=== PATIENT | female | born 1990 | race African-American/Black ===

== ENCOUNTER 2016-12-22 11:46 | Emergency (ER) | payer OTHER ==
[2016-12-22 11:53] VITALS: BMI 35.2
--- NOTE | 2016-12-22 13:29 | PDOC ---
History of Present Illness - General History Source: Patient Exam Limitations: No Limitations - History of Present Illness Initial Comments: 12/22/16 13:43 The patient is a 26-year-old woman M2, currently approximately 10 weeks with a past medical history of a benign heart murmur who was advised to present to the emergency department by her Prop Cutter, Dr. Arrieta, for further evaluation of vaginal bleeding. Patient reports noting an episode of vaginal bleeding yesterday. No clots. She reports associated symptoms of intermittent abdominal cramping, particularly on the right lower abdomen. Her last menstrual period was on 10/08/2016. Patient reported to her clinic ([address] [place] [address]), who advised her to come to the ER. No fever, chills, weakness, nausea, vomiting, diarrhea. No urinary complaints. Allergies: No Known Drug Allergies Past Surgical History: None reported Social History: No tobacco, EtOH and recreational drug use. Primary Care Physician: Dr. Linette Perez Prop Cutter: Dr. Arrieta <Shazia Tyler - Last Filed: 12/22/16 14:37> <Gina Darden - Last Filed: 12/22/16 16:36> - General Chief Complaint: Vaginal Bleeding Stated Complaint: 10 WKS , BLEEDING (REFERRED) Time Seen by Provider: 12/22/16 13:06 Past History <Shazia Tyler - Last Filed: 12/22/16 14:37> - Past Medical History Asthma: No Cancer: No Cardiac Disorders: Yes (benign heart murmur) Diabetes: No HTN: No Seizures: No Thyroid Disease: No - Reproductive History (#): 4 Para: 1 Therapeutic (s) & number: Yes Spontaneous : 1 - Psycho/Social/Smoking Cessation Hx Anxiety: No Suicidal Ideation: No Smoking History: Never smoked Have you smoked in the past 12 months: No Information on smoking cessation initiated: No Hx Alcohol Use: No Drug/Substance Use Hx: No Substance Use Type: None Hx Substance Use Treatment: No <Gina Darden - Last Filed: 12/22/16 16:36> - Past Medical History Allergies/Adverse Reactions: Allergies Allergy/AdvReac Type Severity Reaction Status Date / Time No Known Allergies Allergy Verified 12/22/16 11:51 Home Medications: Ambulatory Orders Ibuprofen [Motrin -] 600 mg PO Q4H PRN #1 tablet 10/12/13 Acetaminophen [Tylenol .Regular Strength -] 650 mg PO Q4H PRN #1 tablet Metoclopramide HCl [Reglan -] 10 mg PO TID #21 tablet 11/19/15 Review of Systems - Review of Systems Able to Perform ROS?: Yes Comments:: 12/22/16 13:43 GENERAL/CONSTITUTIONAL: No fever or chills. No weakness. HEAD, EYES, EARS, NOSE AND THROAT: No change in vision. No ear pain or discharge. No sore throat. CARDIOVASCULAR: No chest pain or shortness of breath. RESPIRATORY: No cough, wheezing, or hemoptysis. GASTROINTESTINAL: No nausea, vomiting, diarrhea or constipation. GENITOURINARY:Yes: +Vaginal Bleeding. No dysuria, frequency, or change in urination. MUSCULOSKELETAL: No joint or muscle swelling or pain. No neck or back pain. SKIN: No rash NEUROLOGIC: No headache, vertigo, loss of consciousness, or change in strength/ sensation. ENDOCRINE: No increased thirst. No abnormal weight change. HEMATOLOGIC/LYMPHATIC: No anemia, easy bleeding, or history of blood clots. ALLERGIC/IMMUNOLOGIC: No hives or skin allergy. <Shazia Tyler - Last Filed: 12/22/16 14:37> *Physical Exam - Vital Signs Last Vital Signs Temp Pulse Resp BP Pulse Ox 98.2 F 81 18 113/62 100 12/22/16 11:51 12/22/16 11:51 12/22/16 11:51 12/22/16 11:51 12/22/16 11:51 - Physical Exam Comments: 12/22/16 13:43 GENERAL: Awake, alert, and fully oriented, in no acute distress HEAD: No signs of trauma EYES: PERRLA, EOMI, sclera anicteric, conjunctiva clear ENT: Auricles normal inspection, hearing grossly normal, nares patent, oropharynx clear without exudates. Moist mucosa NECK: Normal ROM, supple, no lymphadenopathy, JVD, or masses LUNGS: Breath sounds equal, clear to auscultation bilaterally. No wheezes, and no crackles HEART: Regular rate and rhythm, normal S1 and S2, no murmurs, rubs or gallops ABDOMEN: Soft, mild right lower quadrant tenderness to palpation, normoactive bowel sounds. No guarding, no rebound. No masses EXTREMITIES: Normal range of motion, no edema. No clubbing or cyanosis. No cords, erythema, or tenderness NEUROLOGICAL: Cranial nerves II through XII grossly intact. Normal speech <Shazia Tyler - Last Filed: 12/22/16 14:37> - Vital Signs Last Vital Signs Temp Pulse Resp BP Pulse Ox 98.2 F 81 18 113/62 100 12/22/16 11:51 12/22/16 11:51 12/22/16 11:51 12/22/16 11:51 12/22/16 11:51 - Physical Exam Comments: : No external lesions. Trace physiologic discharge in the vault. No CMT, no adnexal tenderness. Os closed. <Gina Darden - Last Filed: 12/22/16 16:36> ED Treatment Course - LABORATORY CBC & Chemistry Diagram: 12/22/16 15:15 12/22/16 15:15 <Gina Darden - Last Filed: 12/22/16 16:36> *DC/Admit/Observation/Transfer - Attestations Scribe Attestion: 12/22/16 13:43 Documentation prepared by Shazia Tyler, acting as back office medical assistant for Gina Darden MD. <Shazia Tyler - Last Filed: 12/22/16 14:37> - Discharge Dispostion Admit: No <Gina Darden - Last Filed: 12/22/16 16:36> Diagnosis at time of Disposition: Threatened - Discharge Dispostion Disposition: HOME Condition at time of disposition: Stable - Referrals Referrals: Linette Perez MD [Primary Care Provider] -
[2016-12-22 14:23] LABS: URINE APPEARANCE CLEAR; URINE BILIRUBIN NEGATIVE (NEGATIVE); URINE BLOOD NEGATIVE (NEGATIVE); URINE COLOR YELLOW; URINE GLUCOSE (UA) 1+ (NEGATIVE); URINE KETONE NEGATIVE (NEGATIVE); URINE NITRITE NEGATIVE (NEGATIVE); URINE PROTEIN NEGATIVE (NEGATIVE); URINE UROBILINOGEN NEGATIVE E.U./dl (0.2-1.0)
[2016-12-22 14:44] LABS: URINE LEUK ESTERASE TRACE (NEGATIVE)
[2016-12-22 14:46] LABS: URINE BACTERIA RARE /hpf (NONE SEEN); URINE MUCUS FEW; URINE RBC 2 /hpf (0-3); URINE WBC 11 /hpf (3-5)
[2016-12-22 15:22] LABS: BASOPHIL 0.3 % (0-2.0); EOSINOPHIL 2.4 % (0-4.5); MCH 28.7 pg (25.7-33.7); MCHC 32.6 g/dl (32.0-36.0); MEAN CELL VOLUME 88.1 fl (80-96); MEAN PLT VOLUME 9.2 fl (7.5-11.1); NEUTROPHILS 59.1 % (42.8-82.8); PLATELET COUNT 235 K/MM3 (134-434); WHITE BLOOD COUNT 9.7 K/mm3 (4.0-10.0)
[2016-12-22 15:45] LABS: ALBUMIN 3.5 g/dl (3.4-5.0); ANION GAP 8 (8-16); BILIRUBIN,TOTAL 0.5 mg/dL (0.2-1.0); CALCIUM 8.8 mg/dL (8.5-10.1); CO2 25 mmol/L (21-32); COCKROFT - GAULT 181.9085; CREATININE 0.7 mg/dL (0.55-1.02); GLUCOSE,RANDOM 115 mg/dL (74-106); SGOT/AST 8 U/L (15-37); SGPT/ALT 17 U/L (12-78); TOT PROT 7.8 g/dl (6.4-8.2)
[2016-12-22 16:15] LABS: ALK PHOS 78 U/L (45-117)
[2016-12-22 16:40] VITALS: BP 115/84; PULSE 82; TEMP 98
== END 2016-12-22 16:41 | disposition home or self-care (01) ==
LOC: JER 11:46
DX: O26.891 Other specified pregnancy related conditions, first trimester (principal); O20.0 Threatened abortion; Z3A.10 10 weeks gestation of pregnancy
CPT/HCPCS: 36415; 76817-TC; 80053; 81003; 81015; 84702; 85025; 86850; 86900; 86901; 99282-25

== ENCOUNTER 2017-07-19 08:00 | Inpatient (IN) | payer OTHER ==
[2017-07-19] MEDS ORDERED: ELECTROLYTE-148 SOLN 500 ML IV SCH (12:00)
[2017-07-19] MEDS ORDERED: CITRIC ACID/SODIUM CITRATE 30 ML UNIT-DOSE CUP PO ONE (12:00)
[2017-07-19] MEDS ORDERED: ELECTROLYTE-148 SOLN 1,000 ML IV SCH (12:30)
[2017-07-19 12:43] VITALS: BMI 37.8
[2017-07-19] MEDS ORDERED: BENZOCAINE 28 GM HEMORRHOIDAL OINTMENT PR PRN (15:40)
[2017-07-19] MEDS ORDERED: WITCH HAZEL 50% (TUCKS) 40 PAD/JAR PAD TP PRN (15:40)
[2017-07-19] MEDS ORDERED: BENZOCAINE 20% 57 GM BOTTLE TP PRN (15:40)
[2017-07-19] MEDS ORDERED: METHYLERGONOVINE MALEATE 0.2 MG/1 ML AMP IM PRN (15:40)
[2017-07-19] MEDS ORDERED: DEXTROSE 5%-LACTATED RINGERS 1,000 ML IV SCH (15:45)
[2017-07-19] MEDS ORDERED: OXYTOCIN 20 UNITS in 0.9% NS 20 UNIT/1,000 ML INFUS.BAG IV SCH (15:45)
--- NOTE | 2017-07-19 15:48 | HP ---
Past Medical History - Primary Care Physician PCP:: Renzo Vo - Admission Chief Complaint: 39 weeks, previous c/s , request of c/s History of Present Illness: 26 yo f 39 weeks, with previous c/s requesting repeat c/s, hx of GDM, diet controlled, cx clp, vx -3 mi, fhr cat 1, rba to c/s discussed , discussed History Source: Patient Limitations to Obtaining History: No Limitations - Past Medical History ...: 6 ...Para: 1 ...Term: 1 ...: 0 ...Spon : 2 ...Induced : 2 ...Multiple Gestation: 0 ... Weeks Gestation by Dates: 39.0 ...EDC by Dates: 07/26/17 - Past Surgical History Past Surgical History: Yes: Hx Myomectomy: No Hx Transabdominal Cerclage: No - Smoking History Smoking history: Never smoked Have you smoked in the past 12 months: No - Alcohol/Substance Use Hx Alcohol Use: No - Social History History of Recent Travel: No Home Medications - Allergies Allergies/Adverse Reactions: Allergies Allergy/AdvReac Type Severity Reaction Status Date / Time No Known Allergies Allergy Verified 07/19/17 16:46 - Home Medications Home Medications: Ambulatory Orders Vit/Iron Fumarate/FA [ Tablet] 1 tab PO DAILY 05/29/17 Review of Systems - Review of Systems Constitutional: reports: No Symptoms Eyes: reports: No Symptoms HENT: reports: No Symptoms Neck: reports: No Symptoms Cardiovascular: reports: No Symptoms Respiratory: reports: No Symptoms Gastrointestinal: reports: No Symptoms (0) Genitourinary: reports: No Symptoms Breasts: reports: No Symptoms Reported Musculoskeletal: reports: No Symptoms Integumentary: reports: No Symptoms Neurological: reports: No Symptoms Endocrine: reports: No Symptoms Hematology/Lymphatic: reports: No Symptoms Psychiatric: reports: No Symptoms Physical Exam - Maternity Vital Signs: Vital Signs Temperature 98.2 F 07/19/17 12:33 Pulse Rate 94 H 07/19/17 12:33 Respiratory Rate 20 07/19/17 12:33 Blood Pressure 136/87 07/19/17 12:33 O2 Sat by Pulse Oximetry (%) Constitutional: Yes: Well Nourished, No Distress, Calm Eyes: Yes: WNL, Conjunctiva Clear, EOM Intact HENT: Yes: WNL, Atraumatic, Normocephalic Neck: Yes: WNL, Supple, Trachea Midline Cardiovascular: Yes: WNL, Regular Rate and Rhythm Breast(s): Yes: WNL - Abdominal Exam/OB Fundal Height: 40 Number of Fetuses: Single Presentation: Vertex Contractions: No Regularity: Irritability Intensity: Unaware Monitor Mode: External Heart Rate Location: [facility] Category: I Accelerations: Uniform Decelerations: None - Vaginal Exam/OB Vaginal Bleediing: No Speculum Exam: No Dilatation (cm): closed Effacement (%): 0 Amniotic Membrane Status: Intact Presentation: Vertex/Position Station: -3 - Physical Exam Edema: Yes Edema: LLE: Trace, RLE: Trace Deep Tendon Reflex Grade: Normal +2 Psychiatric: Yes: WNL Hemorrhage Risk Assessment - Risk Factors Medium Risk Factors: Yes: Prior , uterine surgery,or multiple laparotomies Risk Score: 1 Risk Level: Medium Risk Problem List - Problems (1) with 39 completed weeks gestation Code(s): Z3A.39 - 39 WEEKS GESTATION OF (2) Previous section Code(s): Z98.891 - HISTORY OF UTERINE SCAR FROM PREVIOUS SURGERY Assessment/Plan 39 weeks,previous c/s ,for repeat c/s rba discussed
[2017-07-19] MEDS ORDERED: morphine SULFATE/Preservative Free 0.5 MG/ML (1cc Syringe) EP ONE (16:30)
[2017-07-19] MEDS: IBUPROFEN 800 MG/8 ML IJ IVPB PRN ×2 (17:06→22:44)
--- NOTE | 2017-07-19 17:11 | OP ---
DATE OF OPERATION: 07/19/2017 PREOPERATIVE DIAGNOSIS: , 39 weeks; previous section; request of repeat section. POSTOPERATIVE DIAGNOSIS: , 39 weeks; previous section; request of repeat section. PROCEDURE: Repeat low-segment transverse section and removal of the old keloid scar. SURGEON: Kiki Vo MD SECURITY COMPLIANCE SPECIALIST: BECK Adrian ANESTHESIA: Spinal. ANESTHESIOLOGIST: Bertha Montero MD ESTIMATED BLOOD LOSS: 500 mL DESCRIPTION OF OPERATION: Patient was taken to the operating room. Under adequate spinal anesthesia, abdomen and perineum were prepped and draped. Pfannenstiel abdominal skin incision was made underneath the previous incision. Old keloid scar was removed, and then, abdominal wall was cut layer by layer until peritoneum was exposed and incised. Upon entering the abdominal cavity, lower uterine segment was identified and uterovesical fold of peritoneum established. Bladder was pushed down. Then, with the lower blade of the Lancing retractor in the pelvis, a low transverse uterine incision was made. The incision extended laterally. Amniotic sac was entered; clear fluid. Head delivered. Nasopharynx was suctioned, and live baby girl was delivered without any difficulty. Placenta was delivered manually. Uterine cavity was cleaned of all remaining tissue. Uterine incision was closed in 2 layers, first layer with 0 Biosyn continuous suture, the second layer with 0 Biosyn imbricating the first layer. Bladder flap was closed with 0 Biosyn continuous suture. Both tubes and ovaries were checked, were normal. No active bleeding was seen. All the lap packs, sponge, and instrument counts were correct. Then, peritoneum was closed with 0 Biosyn continuous suture. Muscles were brought together with interrupted suture of 0 Biosyn. Fascia was closed with 0 Biosyn continuous suture, subcutaneous fat with interrupted suture of 0 Biosyn, and the skin was closed with darion. Patient tolerated the procedure well, left the OR in good condition. KIKI VO M.D. [id number]
[2017-07-19] MEDS ORDERED: CEFAZOLIN 1 GM/D5W 1 GM/50 ML BAG IVPB SCH (18:00)
[2017-07-19] MEDS: diphenhydrAMINE HCL 25 MG CAPSULE (FP) PO PRN (22:43)
[2017-07-20] MEDS: CEFAZOLIN 1 GM PUSH 1 GM/10 ML DISP.SYRIN IVPUSH SCH ×2 (00:13→07:16)
[2017-07-20] MEDS: IBUPROFEN 800 MG/8 ML IJ IVPB PRN (05:14)
[2017-07-20] MEDS: diphenhydrAMINE HCL 25 MG CAPSULE (FP) PO PRN ×2 (06:24→13:50)
[2017-07-20 08:19] LABS: BASOPHIL 0.4 % (0-2.0); EOSINOPHIL 0.8 % (0-4.5); MCH 27.5 pg (25.7-33.7); MCHC 32.3 g/dl (32.0-36.0); MEAN CELL VOLUME 85.2 fl (80-96); MEAN PLT VOLUME 10.2 fl (7.5-11.1); NEUTROPHILS 69.1 % (42.8-82.8); PLATELET COUNT 149 K/MM3 (134-434); WHITE BLOOD COUNT 8.8 K/mm3 (4.0-10.0)
[2017-07-20] MEDS: ENOXAPARIN NA (PORCINE) 40 MG/0.4 ML DISP.SYRIN SQ SCH (10:54)
[2017-07-20] MEDS: PRENATAL VITAMINS W/ FOLIC ACID TABLET (FP) PO SCH (10:55)
[2017-07-20] MEDS: FERROUS SO4 325 MG TABLET (FP) PO SCH ×2 (10:55→18:54)
--- NOTE | 2017-07-20 11:00 | PN ---
Progress Note, Physician Chief Complaint: Pt ambulating and waiting to void. Pain controlled, no anesthesia complaints. - Current Medication List Current Medications: Active Medications Benzocaine (Americaine 20% [place] -) 1 spray TP PRN PRN PRN Reason: PAIN Benzocaine (Americaine Ointment -) 1 applic MA PRN PRN PRN Reason: PAIN Bisacodyl (Dulcolax Suppository -) 10 mg MA PRN PRN PRN Reason: CONSTIPATION Diphenhydramine HCl (Benadryl -) 25 mg PO Q8H PRN PRN Reason: FOR ITCHING Last Admin: 07/20/17 06:24 Dose: 25 mg Enoxaparin Sodium (Lovenox -) 40 mg SQ DAILY [facility] Last Admin: 07/20/17 10:54 Dose: 40 mg Ferrous Sulfate (Feosol -) 325 mg PO BIDWM [facility] Last Admin: 07/20/17 10:55 Dose: Not Given Ibuprofen (Motrin -) 600 mg PO Q4H PRN PRN Reason: PAIN Methylergonovine Maleate (Methergine Injection -) 0.2 mg IM Q4H PRN PRN Reason: EXCESSIVE BLEEDING Oxycodone HCl (Roxicodone -) 5 mg PO Q4H PRN PRN Reason: PAIN LEVEL 1-5 Oxycodone HCl (Roxicodone -) 10 mg PO Q4H PRN PRN Reason: PAIN LEVEL 6-10 Multivit/Folic Acid/Iron ( Vitamins (Sjr) -) 1 tab PO DAILY [facility] Last Admin: 07/20/17 10:55 Dose: Not Given Senna/Docusate Sodium (Pericolace -) 2 tablet PO HS PRN PRN Reason: CONSTIPATION Simethicone (Mylicon -) 80 mg PO Q4H PRN PRN Reason: GAS [place]/Glycerin (Tucks Pads -) 1 pad TP PRN PRN PRN Reason: PAIN Last Admin: 07/19/17 18:11 Dose: 1 pad - Objective Vital Signs: Vital Signs Temperature 98.3 F 07/20/17 09:09 Pulse Rate 80 07/20/17 09:09 Respiratory Rate 20 07/20/17 09:09 Blood Pressure 130/77 07/20/17 09:09 O2 Sat by Pulse Oximetry (%) 100 07/19/17 16:55 Constitutional: Yes: Well Nourished, No Distress, Calm Musculoskeletal: Yes: WNL Neurological: Yes: WNL, Alert, Oriented ...Motor Strength: WNL Labs: CBC, BMP 07/20/17 06:30 Assessment/Plan POD#1 s/p under spinal with duramorph. Doing well. D/C from anesthesia care once she voids.
[2017-07-20] MEDS: IBUPROFEN 600 MG TABLET (FP) PO PRN ×2 (13:50→21:00)
[2017-07-20] MEDS: SIMETHICONE 80 MG TAB.CHEW (FP) PO PRN ×2 (13:50→21:00)
[2017-07-20] MEDS ORDERED: BISACODYL 10 MG SUPP.RECT PR PRN (15:40)
[2017-07-20] MEDS: oxyCODONE HCL 5 MG TABLET PO PRN ×2 (16:24→21:01)
[2017-07-20] MEDS: ACETAMINOPHEN 325 MG TABLET (FP) PO PRN (20:59)
[2017-07-21] MEDS: oxyCODONE HCL 5 MG TABLET PO PRN ×5 (02:04→20:38)
[2017-07-21] MEDS: SIMETHICONE 80 MG TAB.CHEW (FP) PO PRN ×5 (02:04→20:37)
[2017-07-21] MEDS: IBUPROFEN 600 MG TABLET (FP) PO PRN ×5 (02:04→20:39)
[2017-07-21] MEDS: ACETAMINOPHEN 325 MG TABLET (FP) PO PRN ×2 (02:05→06:31)
[2017-07-21] MEDS: FERROUS SO4 325 MG TABLET (FP) PO SCH ×2 (08:00→17:41)
--- NOTE | 2017-07-21 08:41 | PN ---
Post Progress Note - Subjective Subjective: 26 yo Para 2 status post repeat seen and evaluated. She's lying comfortably in bed. Post Day: 1 Type of Delivery: Repeat C/S Vital Signs: Vital Signs Temperature 99.1 F 07/20/17 22:00 Pulse Rate 104 H 07/20/17 22:00 Respiratory Rate 18 07/20/17 22:00 Blood Pressure 110/55 07/20/17 22:00 O2 Sat by Pulse Oximetry (%) 100 07/19/17 16:55 Breast Exam: Yes: Soft Uterus: Yes: Fundus Firm Incision: Yes: Dressing dry and intact Abdomen/GI: Yes: Abdomen soft, Tolerating PO Lochia: Yes: Rubra Lochia, amount: Moderate Extremities: Yes: Calves non-tender Perineum: Yes: Intact Activity: Ambulating - Labs Labs: CBC WBC 8.8 K/mm3 (4.0-10.0) D 07/20/17 06:30 RBC 3.55 M/mm3 (3.60-5.2) L 07/20/17 06:30 Hgb 9.8 GM/dL (10.7-15.3) L D 07/20/17 06:30 Hct 30.2 % (32.4-45.2) L 07/20/17 06:30 MCV 85.2 fl (80-96) 07/20/17 06:30 MCH 27.5 pg (25.7-33.7) 07/20/17 06:30 MCHC 32.3 g/dl (32.0-36.0) 07/20/17 06:30 RDW 15.0 % (11.6-15.6) 07/20/17 06:30 Plt Count 149 K/MM3 (134-434) D 07/20/17 06:30 MPV 10.2 fl (7.5-11.1) 07/20/17 06:30 Neutrophils % 69.1 % (42.8-82.8) D 07/20/17 06:30 Lymphocytes % 15.5 % (8-40) D 07/20/17 06:30 Monocytes % 14.2 % (3.8-10.2) H 07/20/17 06:30 Eosinophils % 0.8 % (0-4.5) 07/20/17 06:30 Basophils % 0.4 % (0-2.0) 07/20/17 06:30 Assessment/Plan Status post repeat Stable Ambulation Analgesia as needed Continue routine post op care
[2017-07-21] MEDS: PRENATAL VITAMINS W/ FOLIC ACID TABLET (FP) PO SCH (10:07)
[2017-07-21] MEDS: ENOXAPARIN NA (PORCINE) 40 MG/0.4 ML DISP.SYRIN SQ SCH (10:18)
[2017-07-21] MEDS ORDERED: SENNOSIDES/DOCUSATE COMBO (SENNA PLUS) TABLET (UD) PO PRN (22:00)
[2017-07-22] MEDS: SIMETHICONE 80 MG TAB.CHEW (FP) PO PRN ×5 (02:25→21:12)
[2017-07-22] MEDS: ACETAMINOPHEN 325 MG TABLET (FP) PO PRN ×5 (02:26→21:12)
[2017-07-22] MEDS: oxyCODONE HCL 5 MG TABLET PO PRN (02:26)
[2017-07-22] MEDS: IBUPROFEN 600 MG TABLET (FP) PO PRN ×4 (06:43→21:13)
[2017-07-22] MEDS: FERROUS SO4 325 MG TABLET (FP) PO SCH ×3 (08:00→17:08)
[2017-07-22 08:42] LABS: BASOPHIL 0.4 % (0-2.0); EOSINOPHIL 1.9 % (0-4.5); MCH 27.8 pg (25.7-33.7); MCHC 32.8 g/dl (32.0-36.0); MEAN CELL VOLUME 84.8 fl (80-96); MEAN PLT VOLUME 9.3 fl (7.5-11.1); NEUTROPHILS 64.1 % (42.8-82.8); PLATELET COUNT 202 K/MM3 (134-434); RDW 15.3 % (11.6-15.6); WHITE BLOOD COUNT 7.6 K/mm3 (4.0-10.0)
[2017-07-22] MEDS: PRENATAL VITAMINS W/ FOLIC ACID TABLET (FP) PO SCH (10:02)
[2017-07-22] MEDS: ENOXAPARIN NA (PORCINE) 40 MG/0.4 ML DISP.SYRIN SQ SCH (10:04)
--- NOTE | 2017-07-22 12:54 | PN ---
Post Progress Note - Subjective Subjective: 26 yo Para 2, status post repeat , seen and evaluated. She's ambulating. She c/o chest pain secondary to gastric reflux. Post Day: 2 Type of Delivery: Repeat C/S Vital Signs: Vital Signs Temperature 98.0 F 07/22/17 09:30 Pulse Rate 86 07/22/17 09:30 Respiratory Rate 20 07/22/17 09:30 Blood Pressure 131/77 07/22/17 09:30 O2 Sat by Pulse Oximetry (%) 100 07/19/17 16:55 Breast Exam: Yes: Soft Uterus: Yes: Fundus Firm Incision: Yes: Eryn intact Abdomen/GI: Yes: Abdomen soft Lochia: Yes: Rubra Lochia, amount: Small Extremities: Yes: Calves non-tender Perineum: Yes: Intact Activity: Ambulating - Labs Labs: CBC WBC 7.6 K/mm3 (4.0-10.0) 07/22/17 07:00 RBC 3.58 M/mm3 (3.60-5.2) L 07/22/17 07:00 Hgb 10.0 GM/dL (10.7-15.3) L 07/22/17 07:00 Hct 30.3 % (32.4-45.2) L 07/22/17 07:00 MCV 84.8 fl (80-96) 07/22/17 07:00 MCH 27.8 pg (25.7-33.7) 07/22/17 07:00 MCHC 32.8 g/dl (32.0-36.0) 07/22/17 07:00 RDW 15.3 % (11.6-15.6) 07/22/17 07:00 Plt Count 202 K/MM3 (134-434) D 07/22/17 07:00 MPV 9.3 fl (7.5-11.1) 07/22/17 07:00 Neutrophils % 64.1 % (42.8-82.8) 07/22/17 07:00 Lymphocytes % 21.1 % (8-40) D 07/22/17 07:00 Monocytes % 12.5 % (3.8-10.2) H 07/22/17 07:00 Eosinophils % 1.9 % (0-4.5) D 07/22/17 07:00 Basophils % 0.4 % (0-2.0) 07/22/17 07:00 Problem List - Problems (1) Gastric reflux syndrome Code(s): K21.9 - GASTRO-ESOPHAGEAL REFLUX DISEASE WITHOUT ESOPHAGITIS Assessment/Plan Status post repeat Stable Ambulation Gastric reflux Continue Mylanta and blood glucose monitoring
[2017-07-22] MEDS: MAG HYDROX/AL HYDROX/SIMETH 30 ML UNIT-DOSE CUP PO PRN ×2 (17:11→22:58)
[2017-07-23] MEDS: IBUPROFEN 600 MG TABLET (FP) PO PRN (06:00)
[2017-07-23] MEDS: SIMETHICONE 80 MG TAB.CHEW (FP) PO PRN (06:00)
[2017-07-23] MEDS: ACETAMINOPHEN 325 MG TABLET (FP) PO PRN (06:01)
[2017-07-23] MEDS: MAG HYDROX/AL HYDROX/SIMETH 30 ML UNIT-DOSE CUP PO PRN (06:01)
[2017-07-23] MEDS: FERROUS SO4 325 MG TABLET (FP) PO SCH (08:31)
--- NOTE | 2017-07-23 09:38 | DS ---
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 Vital Signs: Vital Signs Temperature 98.1 F 07/22/17 20:29 Pulse Rate 84 07/22/17 20:29 Respiratory Rate 20 07/22/17 20:29 Blood Pressure 137/89 07/22/17 20:29 O2 Sat by Pulse Oximetry (%) 100 07/19/17 16:55 Constitutional: Yes: Well Nourished Eyes: Yes: Conjunctiva Clear HENT: Yes: Atraumatic Neck: Yes: Supple Cardiovascular: Yes: Regular Rate and Rhythm Respiratory: Yes: Regular Gastrointestinal: Yes: Normal Bowel Sounds Pelvis: Yes: WNL External Genitalia: Yes: Normal Vaginal Exam: Yes: Normal Cervix: Yes: Normal Uterus: Yes: Firm Breast(s): Yes: WNL Musculoskeletal: Yes: WNL Extremities: Yes: WNL Wound/Incision: Yes: Clean/Dry, [place] Intact Neurological: Yes: Alert, Oriented ...Motor Strength: WNL Psychiatric: Yes: Alert, Oriented Labs: CBC, BMP 07/22/17 07:00 Delivery - Delivery Type of Anesthesia: Spinal Episiotomy/Laceration: None EBL (cc): 500 Delivery, Single - Stages of Labor Date of Delivery: 07/19/17 Time of Delivery: 15:14 Time Placenta Delivered: 15:15 - Condition of Infant 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 Present: Yes Name: Susan Garza Infant Gender: Female Weight: 9 lb 6 oz Total Hours ROM (Hrs/Mins): [id number] - 1 Minute Total Score: 9 5 Minutes Total Score: 9 - [place] Feeding Plan Initial Plan: Exclusive throughout hospitalization Discharge Summary Reason For Visit: C SECTION Current Active Problems Gastric reflux syndrome (Acute) with 39 completed weeks gestation (Acute) Previous section (Acute) Procedures: Principal: Repeat Low transverse Hospital Course: Routine post op care Condition: Good - Instructions Diet, Activity, Other Instructions: Regular diet No driving, no lifting x 4 weeks F/U in clinic in one week for darion removal. Disposition: HOME - Home Medications Comprehensive Discharge Medication List: Ambulatory Orders Vit/Iron Fumarate/FA [ Tablet] 1 tab PO DAILY 05/29/17
[2017-07-23] MEDS: PRENATAL VITAMINS W/ FOLIC ACID TABLET (FP) PO SCH (09:56)
[2017-07-23] MEDS: ENOXAPARIN NA (PORCINE) 40 MG/0.4 ML DISP.SYRIN SQ SCH (09:56)
[2017-07-23 10:27] VITALS: BP 130/78; PULSE 76; TEMP 98
== END 2017-07-23 12:30 | disposition home or self-care (01) | DRG 540 ==
LOC: JLDR 12:00 → J3W 17:12
PROVIDERS: ADMIT Obstetrics & Gynecology; ATTEND Obstetrics & Gynecology
PROC: 10D00Z1 Extraction of Products of Conception, Low, Open Approach (ICD-10-PCS; principal; 2017-07-19)
PROC: 0HB7XZZ Excision of Abdomen Skin, External Approach (ICD-10-PCS; 2017-07-19)
DX: O34.211 Maternal care for low transverse scar from previous cesarean delivery (principal); O99.214 Obesity complicating childbirth; E66.8 Other obesity; Z68.37 Body mass index [BMI] 37.0-37.9, adult; Z3A.39 39 weeks gestation of pregnancy; Z37.0 Single live birth
CPT/HCPCS: 36415; 85025

== ENCOUNTER 2021-03-16 14:26 | Inpatient (IN) | payer OTHER ==
[2021-03-16] MEDS ORDERED: SODIUM CHLORIDE 1,000 ML IV STA (15:36)
[2021-03-16 17:01] LABS: BASO % 0.4 % (0-2.0); EOS % 0.8 % (0-4.5); HEMATOCRIT 15.7 % (32.4-45.2); LYMPH % 22.4 % (8-40); MCH 20.4 pg (25.7-33.7); MCHC 31.1 g/dl (32.0-36.0); MEAN CELL VOLUME 65.7 fl (80-96); MEAN PLT VOLUME 8.2 fl (7.5-11.1); MONO % 10.6 % (3.8-10.2); NEUT % 65.8 % (42.8-82.8); PLATELET COUNT 388 10^3/uL (134-434); RBC 2.39 M/mm3 (3.60-5.2); RDW 27.7 % (11.6-15.6); WHITE BLOOD COUNT 6.9 K/mm3 (4.0-10.0)
[2021-03-16 17:07] LABS: HEMOGLOBIN 4.9 GM/dL (10.7-15.3); INR 1.12 (0.83-1.09); PROTHROMBIN TIME (PATIENT) 13.7 SEC (9.7-13.0)
[2021-03-16 17:28] LABS: EPI CELLS 33 /uL (0-25.1); HYALINE CASTS 56 /uL (0-3.1); URINE APPEARANCE TURBID; URINE BACTERIA 190 /uL (0-1359); URINE BILIRUBIN 1+ (NEGATIVE); URINE COLOR RED; URINE GLUCOSE (UA) NEGATIVE (NEGATIVE); URINE KETONE NEGATIVE (NEGATIVE); URINE LEUK ESTERASE 1+ (NEGATIVE); URINE NITRITE NEGATIVE (NEGATIVE); URINE PROTEIN 4+ (NEGATIVE); URINE RBC 9772 /uL (0-23.9); URINE WBC 241 /uL (0-25.8)
[2021-03-16 18:51] LABS: CALCIUM 8.1 mg/dL (8.5-10.1)
[2021-03-16 18:52] LABS: ALBUMIN 3.4 g/dl (3.4-5.0); BLOOD UREA NITROGEN 10.6 mg/dL (7-18)
[2021-03-16 18:55] LABS: CREATININE 0.6 mg/dL (0.55-1.3)
[2021-03-16 18:57] LABS: BILIRUBIN,TOTAL 0.5 mg/dL (0.2-1); TOT PROT 7.4 g/dl (6.4-8.2)
[2021-03-17] MEDS: ACETAMINOPHEN 1000 MG/100 ML VIAL (NON FORMULARY) IVPB SCH ×2 (01:30→09:19)
[2021-03-17 02:33] VITALS: BMI 199.0
[2021-03-17 10:05] VITALS: BP 123/69; PULSE 70; TEMP 98.3
[2021-03-17 11:18] LABS: BASO % 0.4 % (0-2.0); EOS % 1.3 % (0-4.5); HEMATOCRIT 23.8 % (32.4-45.2); LYMPH % 24.3 % (8-40); MCH 25.3 pg (25.7-33.7); MCHC 33.7 g/dl (32.0-36.0); MONO % 10.4 % (3.8-10.2); NEUT % 63.6 % (42.8-82.8); PLATELET COUNT 314 10^3/uL (134-434); RBC 3.17 M/mm3 (3.60-5.2); RDW 28.9 % (11.6-15.6); WHITE BLOOD COUNT 8.8 K/mm3 (4.0-10.0)
== END 2021-03-17 14:22 | disposition home or self-care (01) | DRG 663 ==
LOC: JER 14:26 → JERBED 18:27 → J6S 03-17 01:49
PROVIDERS: ADMIT Student in an Organized Health Care Education/Training Program; ATTEND Student in an Organized Health Care Education/Training Program
PROC: 30233N1 Transfusion of Nonautologous Red Blood Cells into Peripheral Vein, Percutaneous Approach (ICD-10-PCS; principal; 2021-03-16)
DX: D50.0 Iron deficiency anemia secondary to blood loss (chronic) (principal); N93.9 Abnormal uterine and vaginal bleeding, unspecified; F12.90 Cannabis use, unspecified, uncomplicated
CPT/HCPCS: 36415; 36430; 76817-TC; 80053; 81003; 84484; 84702; 85025; 85610; 85730; 86850; 86900; 86901; 86922; 93005; 93010; 99285-25; C9803; P9058; U0003; U0005

== ENCOUNTER 2021-03-28 05:07 | Day surgery (SDC) | payer OTHER ==
[2021-03-25 08:33] VITALS: BMI 35.6
[2021-03-28] MEDS ORDERED: DOXYCYCLINE INJECTION 100 MG in DEXTROSE 5%-WATER 100 ML IVPB ONE (12:30)
[2021-03-28] MEDS ORDERED: DOXYCYCLINE HYCLATE 100 MG VIAL IVPB ONE (13:25)
[2021-03-28] MEDS ORDERED: MIDAZOLAM HCL 2 MG/2 ML SINGLE DOSE VIAL ONE ×2 (13:30)
[2021-03-28] MEDS ORDERED: PROPOFOL 20 ML ONE ×2 (13:30)
[2021-03-28] MEDS ORDERED: PROMETHAZINE HCL 25 MG/1 ML VIAL IVPUSH PRN (14:03)
[2021-03-28] MEDS ORDERED: oxyCODONE HCL 5 MG TABLET PO PRN (14:03)
[2021-03-28] MEDS ORDERED: ONDANSETRON 4 MG/2 ML VIAL IVPUSH PRN (14:03)
[2021-03-28 16:33] VITALS: BP 102/54; PULSE 62; TEMP 97.3
== END 2021-03-28 16:05 | disposition home or self-care (01) ==
LOC: JASU-SURG 05:07
PROVIDERS: ATTEND Student in an Organized Health Care Education/Training Program
PROC: 10D17ZZ Extraction of Products of Conception, Retained, Via Natural or Artificial Opening (ICD-10-PCS; principal; 2021-03-28 13:00)
DX: O03.4 Incomplete spontaneous abortion without complication (principal)
CPT/HCPCS: 86850; 86900; 86901; 94760

== ENCOUNTER 2021-05-29 08:14 | Emergency (ER) | payer OTHER ==
[2021-05-29 08:27] VITALS: BP 106/65; PULSE 83; TEMP 98; BMI 33.7
[2021-05-29 09:52] LABS: BASO % 0.6 % (0-2.0); EOS % 0.6 % (0-4.5); HEMATOCRIT 28.6 % (32.4-45.2); HEMOGLOBIN 8.9 GM/dL (10.7-15.3); LYMPH % 29.7 % (8-40); MEAN CELL VOLUME 64.4 fl (80-96); MEAN PLT VOLUME 8.5 fl (7.5-11.1); NEUT % 58.1 % (42.8-82.8); PLATELET COUNT 429 10^3/uL (134-434); RBC 4.43 M/mm3 (3.60-5.2); RDW 26.3 % (11.6-15.6); WHITE BLOOD COUNT 9.3 K/mm3 (4.0-10.0)
[2021-05-29 10:14] LABS: CALCIUM 8.1 mg/dL (8.5-10.1)
[2021-05-29 10:15] LABS: ALBUMIN 3.7 g/dl (3.4-5.0); BLOOD UREA NITROGEN 15.6 mg/dL (7-18)
[2021-05-29 10:18] LABS: CREATININE 0.9 mg/dL (0.55-1.3)
[2021-05-29 10:19] LABS: BILIRUBIN,TOTAL 0.5 mg/dL (0.2-1)
[2021-05-29 10:20] LABS: TOT PROT 8.7 g/dl (6.4-8.2)
[2021-05-29 10:50] LABS: ANISOCYTOSIS 1+; MACROCYTOSIS 0; PLATELET ESTIMATE INCREASED
[2021-05-29 12:50] LABS: HIV INTERPRETATION NEGATIVE (NEGATIVE)
== END 2021-05-29 12:00 | disposition left against medical advice (07) ==
LOC: JER 08:14
DX: T76.21XA Adult sexual abuse, suspected, initial encounter (principal)
CPT/HCPCS: 36415; 80053; 85025; 86706; 86780; 86803; 87389; 87517; 99284-25; C9803; U0003; U0005